=== PATIENT | male | born 1960 | race Caucasian/White ===

== ENCOUNTER 2023-04-12 13:23 | Inpatient (IN) | payer MEDICARE, OTHER ==
[2023-04-12] MEDS ORDERED: Morphine 4 MG/ML VIAL ONE (14:48)
[2023-04-12 14:56] LABS: #Eosinphils 0.4 thou/uL (0.0-0.7); #Monocytes 1.3 thou/uL (0.11-0.59); #Neutrophils 5.9 thou/uL (1.40-6.50); %Basophils 0.2 % (0.0-1.0); %Eosinophils 3.8 % (0.0-10.0); %Lymphocytes 19.7 % (21.0-51.0); %Monocytes 13.8 % (0.0-10.0); %Neutrophils 62.2 % (42.0-75.0); Hemoglobin 12.6 g/dL (14.0-18.0); Mean Corpuscular HGB CONC 33.9 g/dL (32.0-36.0); Mean Corpuscular Hemoglobin 31.4 pg (27.0-31.0); Mean Corpuscular Volume 92.8 fl (78.0-98.0); Mean Platelet Volume 9.2 fL (7.4-10.4); Platelet Count 221 10x3/uL (130-400); RBC Distribution Width 12.6 % (11.5-14.5); Red Blood Cell (RBC) Count 4.01 mill/uL (4.70-6.10); White Blood Cell (WBC) Count 9.5 10x3/uL (4.8-10.8)
[2023-04-12 15:18] LABS: ALT (SGPT) 16 U/L (8-55); AST (SGOT) 14 U/L (5-34); Albumin 3.6 g/dL (3.4-4.8); Alkaline Phosphatase 207 U/L (40-110); Anion Gap 12 mmol/L (10-20); BUN (Urea Nitrogen) 22 mg/dL (8.4-25.7); Bilirubin, Total 0.3 mg/dL (0.2-1.2); Calc. Creatinine Clearance 0 mL/min (70-130); Calcium 8.7 mg/dL (7.8-10.44); Carbon Dioxide 25 mmol/L (23-31); Chloride 107 mmol/L (98-107); Estimated GFR 56; Globulin 3.3 g/dL (2.4-3.5); Glucose 61 mg/dL (80-115); Lipase 23 U/L (8-78); Potassium 4.1 mmol/L (3.5-5.1); Protein, Total 6.9 g/dL (5.8-8.1); Sodium 140 mmol/L (136-145)
[2023-04-12 15:49] LABS: Bacteria/HPF 4+ HPF (None Seen); Bilirubin Negative (Negative); Blood, Urine 2+ (Negative); CAUTI Indications for Culture Pelvic or flank pain; Clarity Turbid (Clear); Glucose, Urine (Dipstick) Normal (Negative); Ketone, Urine Negative (Negative); Leukocyte 500 Leu/uL (Negative); Nitrite Negative (Negative); Protein, Urine (Dipstick) 30 mg/dL (Neg-Trace); RBC/HPF 21-50 HPF (0-3); Squamous Epithelial None Seen HPF (0-3); Urobilinogen Normal mg/dL (Less than 2); WBC/HPF Greater than 50 HPF (0-3)
[2023-04-12 15:50] LABS: Urine Culture Reflex Yes Yes
[2023-04-12] MEDS ORDERED: Senokot S 8.6-50 MG TAB PO PRN (18:33)
[2023-04-12] MEDS ORDERED: Calcium Carbonate 500 MG ChewTAB PO PRN (18:33)
[2023-04-12] MEDS ORDERED: Acetaminophen 325 MG TAB PO PRN (18:33)
[2023-04-12] MEDS ORDERED: Ondansetron ODT 4 MG TAB PO PRN (18:33)
[2023-04-12] MEDS ORDERED: Ondansetron PF 4 MG/2 ML Vial IVP PRN (18:33)
[2023-04-12] MEDS ORDERED: cefTRIAXone (ROCEPHIN) 1 GM VIAL ONE (19:07)
[2023-04-12] MEDS ORDERED: Lidocaine 1% PF 5 ML VIAL ONE (19:12)
[2023-04-12] MEDS ORDERED: HYDROcodone/Acetaminophen 5/325 mg Tablet PO PRN (19:14)
[2023-04-12 22:06] VITALS: BMI 23.1
[2023-04-13 07:00] LABS: #Eosinphils 0.4 thou/uL (0.0-0.7); #Monocytes 1.3 thou/uL (0.11-0.59); #Neutrophils 6.3 thou/uL (1.40-6.50); %Basophils 0.2 % (0.0-1.0); %Eosinophils 3.6 % (0.0-10.0); %Lymphocytes 16.6 % (21.0-51.0); %Monocytes 13.7 % (0.0-10.0); %Neutrophils 65.7 % (42.0-75.0); Hemoglobin 15.1 g/dL (14.0-18.0); Mean Corpuscular HGB CONC 32.8 g/dL (32.0-36.0); Mean Corpuscular Hemoglobin 31.2 pg (27.0-31.0); Mean Corpuscular Volume 95.2 fl (78.0-98.0); Mean Platelet Volume 8.9 fL (7.4-10.4); Platelet Count 218 10x3/uL (130-400); RBC Distribution Width 12.5 % (11.5-14.5); Red Blood Cell (RBC) Count 4.84 mill/uL (4.70-6.10); White Blood Cell (WBC) Count 9.6 10x3/uL (4.8-10.8)
[2023-04-13 07:26] LABS: Anion Gap 14 mmol/L (10-20); BUN (Urea Nitrogen) 23 mg/dL (8.4-25.7); Calc. Creatinine Clearance 64 mL/min (70-130); Calcium 9.1 mg/dL (7.8-10.44); Carbon Dioxide 19 mmol/L (23-31); Chloride 107 mmol/L (98-107); Estimated GFR 61; Glucose 81 mg/dL (80-115); Potassium 4.4 mmol/L (3.5-5.1); Sodium 136 mmol/L (136-145)
[2023-04-13] MEDS ORDERED: Lidocaine 1% PF 5 ML VIAL ONE (09:35)
[2023-04-13] MEDS ORDERED: Sodium Bicarbonate 2.5 MEQ/5 ML VIAL ONE (09:35)
[2023-04-13] MEDS: Carvedilol 6.25 MG TAB PO SCH (17:50)
[2023-04-13] MEDS ORDERED: Atorvastatin Calcium 40 MG TAB PO SCH (21:00)
[2023-04-14 01:08] VITALS: TEMP 97.7
[2023-04-14] MEDS ORDERED: Furosemide 40 MG TAB PO SCH (07:30)
[2023-04-14 07:50] VITALS: BP 158/81
[2023-04-14] MEDS: Carvedilol 6.25 MG TAB PO SCH (09:05)
== END 2023-04-14 12:00 | disposition left against medical advice (07) | DRG 699 ==
LOC: ERS 13:23 → SURG A 18:27 → OBSVTOIN 18:27
PROVIDERS: ADMIT Internal Medicine; ATTEND Internal Medicine
PROC: 0T25X0Z Change Drainage Device in Kidney, External Approach (ICD-10-PCS; principal; 2023-04-13)
DX: N99.522 Malfunction of incontinent external stoma of urinary tract (principal); I50.22 Chronic systolic (congestive) heart failure; N13.6 Pyonephrosis; Y84.6 Urinary catheterization as the cause of abnormal reaction of the patient, or of later complication, without mention of misadventure at the time of the procedure; I11.0 Hypertensive heart disease with heart failure; J44.9 Chronic obstructive pulmonary disease, unspecified; Z87.442 Personal history of urinary calculi; Z79.899 Other long term (current) drug therapy; Z90.49 Acquired absence of other specified parts of digestive tract; Z82.3 Family history of stroke; Z82.49 Family history of ischemic heart disease and other diseases of the circulatory system; F17.210 Nicotine dependence, cigarettes, uncomplicated
CPT/HCPCS: 36415; 50431; 50435; 74176; 80048; 80053; 81001; 83690; 85025; 87086; 96372; 96374; C1729; G0378; J0696; J2270; Q0162

== ENCOUNTER 2023-06-28 16:38 | Inpatient (IN) | payer MEDICARE, OTHER ==
[2023-06-28 17:27] LABS: #Monocytes 2.7 thou/uL (0.11-0.59); #Neutrophils 16.7 thou/uL (1.40-6.50); %Basophils 0.2 % (0.0-1.0); %Eosinophils 0.1 % (0.0-10.0); %Lymphocytes 7.1 % (21.0-51.0); %Neutrophils 79.1 % (42.0-75.0); Hematocrit 36.2 % (42.0-52.0); Hemoglobin 12.6 g/dL (14.0-18.0); Mean Corpuscular HGB CONC 34.8 g/dL (32.0-36.0); Mean Corpuscular Hemoglobin 32.4 pg (27.0-31.0); Mean Corpuscular Volume 93.1 fl (78.0-98.0); Mean Platelet Volume 9.3 fL (7.4-10.4); Platelet Count 228 10x3/uL (130-400); RBC Distribution Width 12.9 % (11.5-14.5); Red Blood Cell (RBC) Count 3.89 mill/uL (4.70-6.10); White Blood Cell (WBC) Count 21.2 10x3/uL (4.8-10.8)
[2023-06-28 17:59] LABS: ALT (SGPT) 13 U/L (8-55); AST (SGOT) 20 U/L (5-34); Albumin 3.8 g/dL (3.4-4.8); Alcohol Less than 10.0 mg/dL (Less than 10); Alkaline Phosphatase 139 U/L (40-110); Anion Gap 14 mmol/L (10-20); BUN (Urea Nitrogen) 24 mg/dL (8.4-25.7); Bilirubin, Total 0.6 mg/dL (0.2-1.2); Calc. Creatinine Clearance 0 mL/min (70-130); Calcium 8.8 mg/dL (7.8-10.44); Carbon Dioxide 25 mmol/L (23-31); Chloride 95 mmol/L (98-107); Estimated GFR 36; Globulin 3.9 g/dL (2.4-3.5); Glucose 94 mg/dL (80-115); Potassium 4.3 mmol/L (3.5-5.1); Protein, Total 7.7 g/dL (5.8-8.1); Sodium 130 mmol/L (136-145)
[2023-06-28 19:33] LABS: Bacteria/HPF 4+ HPF (None Seen); Bilirubin Negative (Negative); Blood, Urine 2+ (Negative); CAUTI Indications for Culture Pelvic or flank pain; Clarity Turbid (Clear); Glucose, Urine (Dipstick) Normal (Negative); Ketone, Urine Negative (Negative); Leukocyte 500 Leu/uL (Negative); Nitrite Negative (Negative); Protein, Urine (Dipstick) 100 mg/dL (Neg-Trace); Renal Epithelial 0-3 HPF (None Seen); Specific Gravity, Urine 1.018 (1.002-1.036); Squamous Epithelial 0-3 HPF (0-3); Urobilinogen Normal mg/dL (Less than 2); WBC/HPF Greater than 50 HPF (0-3); pH, Urine 5.5 (5.0-9.0)
[2023-06-28 19:34] LABS: Urine Culture Reflex Yes Yes
[2023-06-28 19:41] LABS: Amphetamine Detected (NotDetected); Barbiturates Screen Not Detected (NotDetected); Benzodiazepine Screen Not Detected (NotDetected); Cocaine Metabolite Screen Not Detected (NotDetected); Methadone Not Detected (NotDetected); Methamphetamine Detected (NotDetected); Opiate Screen Not Detected (NotDetected); Oxycodone Screen Not Detected (NotDetected); Phencyclidine (PCP) Not Detected (NotDetected); THC/Cannabinoid Screen Not Detected (NotDetected); Tricyclic Screen Not Detected (NotDetected)
[2023-06-28] MEDS ORDERED: Morphine 4 MG/ML VIAL ONE (20:47)
[2023-06-28] MEDS ORDERED: Piperacillin/Tazobactam 3.375 GM VIAL ONE (22:04)
[2023-06-28] MEDS ORDERED: Promethazine HCl 12.5 MG in Sodium Chloride 0.9% 50 ML IVPB PRN (23:08)
[2023-06-28] MEDS ORDERED: Morphine 4 MG/ML VIAL SLOW IVP PRN (23:10)
[2023-06-28] MEDS ORDERED: Lactated Ringer's 1,000 ML IV SCH (23:15)
[2023-06-28] MEDS ORDERED: Sodium Chloride 0.9% 1,000 ML IV SCH (23:15)
[2023-06-28] MEDS ORDERED: Ondansetron ODT 4 MG TAB SL PRN (23:15)
[2023-06-28] MEDS ORDERED: Ondansetron PF 4 MG/2 ML Vial IVP PRN (23:15)
[2023-06-28] MEDS ORDERED: Acetaminophen 325 MG TAB PO PRN (23:15)
[2023-06-29 00:04] VITALS: BMI 23.6
[2023-06-29] MEDS: Piperacillin/Tazobactam 3.375 GM in Sodium Chloride 0.9% 100 ML IVPB SCH ×3 (01:00→16:58)
[2023-06-29] MEDS: Morphine 2 MG/ML VIAL SLOW IVP PRN ×3 (03:23→19:22)
[2023-06-29] MEDS: Acetaminophen 325 MG TAB PO PRN ×2 (05:00→12:45)
[2023-06-29 05:54] LABS: #Eosinphils 0.3 thou/uL (0.0-0.7); #Monocytes 2.1 thou/uL (0.11-0.59); %Basophils 0.2 % (0.0-1.0); %Eosinophils 1.5 % (0.0-10.0); %Lymphocytes 5.3 % (21.0-51.0); %Monocytes 11.9 % (0.0-10.0); %Neutrophils 80.5 % (42.0-75.0); Hemoglobin 11.4 g/dL (14.0-18.0); Mean Corpuscular HGB CONC 34.5 g/dL (32.0-36.0); Mean Corpuscular Hemoglobin 31.9 pg (27.0-31.0); Mean Corpuscular Volume 92.4 fl (78.0-98.0); Mean Platelet Volume 9.9 fL (7.4-10.4); RBC Distribution Width 12.8 % (11.5-14.5); Red Blood Cell (RBC) Count 3.57 mill/uL (4.70-6.10); White Blood Cell (WBC) Count 17.4 10x3/uL (4.8-10.8)
[2023-06-29 05:59] LABS: Platelet Count 126 10x3/uL (130-400)
[2023-06-29 06:15] LABS: Anion Gap 15 mmol/L (10-20); BUN (Urea Nitrogen) 24 mg/dL (8.4-25.7); Calc. Creatinine Clearance 43 mL/min (70-130); Calcium 8.4 mg/dL (7.8-10.44); Carbon Dioxide 22 mmol/L (23-31); Chloride 98 mmol/L (98-107); Estimated GFR 37; Glucose 99 mg/dL (80-115); Potassium 3.5 mmol/L (3.5-5.1); Sodium 131 mmol/L (136-145)
[2023-06-29] MEDS: Heparin 5,000 UNITS/ML VIAL SC SCH ×3 (08:49→18:57)
[2023-06-29] MEDS: Carvedilol 6.25 MG TAB PO SCH ×2 (08:54→16:07)
[2023-06-29] MEDS: Sodium Chloride 0.9% 1,000 ML IV SCH (14:24)
[2023-06-29] MEDS: Atorvastatin Calcium 40 MG TAB PO SCH (19:22)
[2023-06-30] MEDS: Morphine 2 MG/ML VIAL SLOW IVP PRN ×2 (02:19→05:33)
[2023-06-30] MEDS: Sodium Chloride 0.9% 1,000 ML IV SCH ×2 (02:20→17:40)
[2023-06-30] MEDS: Piperacillin/Tazobactam 3.375 GM in Sodium Chloride 0.9% 100 ML IVPB SCH ×3 (02:20→17:40)
[2023-06-30] MEDS: Carvedilol 6.25 MG TAB PO SCH ×2 (05:33→17:36)
[2023-06-30] MEDS: Heparin 5,000 UNITS/ML VIAL SC SCH ×3 (08:50→22:45)
[2023-06-30] MEDS: Acetaminophen 325 MG TAB PO PRN (09:04)
[2023-06-30] MEDS: Atorvastatin Calcium 40 MG TAB PO SCH (22:16)
[2023-07-01] MEDS: Piperacillin/Tazobactam 3.375 GM in Sodium Chloride 0.9% 100 ML IVPB SCH ×3 (02:24→17:09)
[2023-07-01] MEDS: Carvedilol 6.25 MG TAB PO SCH ×2 (08:59→16:12)
[2023-07-01] MEDS: Heparin 5,000 UNITS/ML VIAL SC SCH ×3 (09:00→20:38)
[2023-07-01] MEDS: Morphine 2 MG/ML VIAL SLOW IVP PRN ×3 (09:03→23:41)
[2023-07-01] MEDS: Atorvastatin Calcium 40 MG TAB PO SCH (20:38)
[2023-07-01] MEDS: Sodium Chloride 0.9% 1,000 ML IV SCH ×3 (20:47→20:49)
[2023-07-02] MEDS: Piperacillin/Tazobactam 3.375 GM in Sodium Chloride 0.9% 100 ML IVPB SCH ×3 (00:57→17:20)
[2023-07-02 04:30] LABS: Anion Gap 12 mmol/L (10-20); BUN (Urea Nitrogen) 27 mg/dL (8.4-25.7); Calc. Creatinine Clearance 57 mL/min (70-130); Calcium 8.1 mg/dL (7.8-10.44); Carbon Dioxide 25 mmol/L (23-31); Cardiac Risk 7.7 (Less than 4.5); Chloride 105 mmol/L (98-107); Cholesterol 85 mg/dl (< 200 Desired); Estimated GFR 52; Glucose 95 mg/dL (80-115); HDL Cholesterol 11 mg/dL (>60 Neg Risk); LDL Cholesterol, Calculated 50 mg/dL; Potassium 3.6 mmol/L (3.5-5.1); Sodium 138 mmol/L (136-145); Triglycerides 119 mg/dL (Less than 150)
[2023-07-02] MEDS: Morphine 2 MG/ML VIAL SLOW IVP PRN (06:53)
[2023-07-02] MEDS ORDERED: FLU VACC QS2023-24(6MOS UP)/PF 60 MCG/0.5 ML SYRINGE IM ONE (09:00)
[2023-07-02] MEDS: Carvedilol 6.25 MG TAB PO SCH ×2 (10:43→17:20)
[2023-07-02] MEDS: Heparin 5,000 UNITS/ML VIAL SC SCH ×3 (10:43→21:30)
[2023-07-02] MEDS: Atorvastatin Calcium 40 MG TAB PO SCH (21:13)
[2023-07-02] MEDS: Sodium Chloride 0.9% 1,000 ML IV SCH (21:13)
[2023-07-02] MEDS: hydrALAZINE 25 MG TAB PO SCH (21:14)
[2023-07-03] MEDS: Piperacillin/Tazobactam 3.375 GM in Sodium Chloride 0.9% 100 ML IVPB SCH ×5 (02:57→18:16)
[2023-07-03 10:14] LABS: #Eosinphils 0.4 thou/uL (0.0-0.7); #Monocytes 0.9 thou/uL (0.11-0.59); #Neutrophils 6.2 thou/uL (1.40-6.50); %Basophils 0.2 % (0.0-1.0); %Eosinophils 4.5 % (0.0-10.0); %Monocytes 10.5 % (0.0-10.0); %Neutrophils 71.1 % (42.0-75.0); Hematocrit 32.2 % (42.0-52.0); Hemoglobin 10.5 g/dL (14.0-18.0); Mean Corpuscular HGB CONC 32.6 g/dL (32.0-36.0); Mean Corpuscular Hemoglobin 31.5 pg (27.0-31.0); Mean Corpuscular Volume 96.7 fl (78.0-98.0); Mean Platelet Volume 9.8 fL (7.4-10.4); Platelet Count 203 10x3/uL (130-400); RBC Distribution Width 12.8 % (11.5-14.5); Red Blood Cell (RBC) Count 3.33 mill/uL (4.70-6.10); White Blood Cell (WBC) Count 8.7 10x3/uL (4.8-10.8)
[2023-07-03] MEDS ORDERED: Communication Order-Pharmacy FS SCH (10:15)
[2023-07-03 10:43] LABS: Anion Gap 13 mmol/L (10-20); BUN (Urea Nitrogen) 18 mg/dL (8.4-25.7); Calc. Creatinine Clearance 62 mL/min (70-130); Calcium 8.4 mg/dL (7.8-10.44); Carbon Dioxide 22 mmol/L (23-31); Chloride 108 mmol/L (98-107); Estimated GFR 57; Glucose 85 mg/dL (80-115); Potassium 3.8 mmol/L (3.5-5.1); Sodium 139 mmol/L (136-145)
[2023-07-03] MEDS: hydrALAZINE 25 MG TAB PO SCH ×3 (10:51→20:44)
[2023-07-03] MEDS: Isosorbide Dinitrate 5 MG TAB PO SCH ×3 (10:51→20:44)
[2023-07-03] MEDS: Sodium Chloride 0.9% 1,000 ML IV SCH (10:52)
[2023-07-03] MEDS: Carvedilol 6.25 MG TAB PO SCH ×2 (10:52→15:43)
[2023-07-03] MEDS: Heparin 5,000 UNITS/ML VIAL SC SCH ×2 (10:52→15:43)
[2023-07-03] MEDS: Morphine 2 MG/ML VIAL SLOW IVP PRN (14:04)
[2023-07-03] MEDS: Atorvastatin Calcium 40 MG TAB PO SCH (20:44)
[2023-07-04] MEDS: Sodium Chloride 0.9% 1,000 ML IV SCH (01:31)
[2023-07-04] MEDS: Piperacillin/Tazobactam 3.375 GM in Sodium Chloride 0.9% 100 ML IVPB SCH ×2 (03:06→11:45)
[2023-07-04] MEDS: Morphine 2 MG/ML VIAL SLOW IVP PRN (03:11)
[2023-07-04 03:17] VITALS: TEMP 98.5
[2023-07-04 04:30] LABS: #Eosinphils 0.4 thou/uL (0.0-0.7); %Basophils 0.3 % (0.0-1.0); %Eosinophils 3.8 % (0.0-10.0); %Lymphocytes 15.9 % (21.0-51.0); %Monocytes 9.5 % (0.0-10.0); %Neutrophils 69.8 % (42.0-75.0); Hematocrit 29.4 % (42.0-52.0); Hemoglobin 9.8 g/dL (14.0-18.0); Mean Corpuscular HGB CONC 33.3 g/dL (32.0-36.0); Mean Corpuscular Hemoglobin 31.9 pg (27.0-31.0); Mean Corpuscular Volume 95.8 fl (78.0-98.0); Mean Platelet Volume 9.7 fL (7.4-10.4); Platelet Count 273 10x3/uL (130-400); RBC Distribution Width 12.9 % (11.5-14.5); Red Blood Cell (RBC) Count 3.07 mill/uL (4.70-6.10)
[2023-07-04 05:04] LABS: Anion Gap 11 mmol/L (10-20); BUN (Urea Nitrogen) 19 mg/dL (8.4-25.7); Calc. Creatinine Clearance 62 mL/min (70-130); Calcium 8.2 mg/dL (7.8-10.44); Carbon Dioxide 23 mmol/L (23-31); Chloride 107 mmol/L (98-107); Estimated GFR 58; Glucose 88 mg/dL (80-115); Potassium 3.9 mmol/L (3.5-5.1); Sodium 137 mmol/L (136-145)
[2023-07-04] MEDS: Acetaminophen 325 MG TAB PO PRN (05:20)
[2023-07-04] MEDS: Carvedilol 6.25 MG TAB PO SCH ×2 (05:20→18:03)
[2023-07-04] MEDS: hydrALAZINE 25 MG TAB PO SCH (05:20)
[2023-07-04] MEDS: Isosorbide Dinitrate 5 MG TAB PO SCH (05:20)
[2023-07-04] MEDS ORDERED: Sodium Chloride 0.9% 1,000 ML IV SCH ×2 (06:00→10:12)
[2023-07-04] MEDS ORDERED: Lidocaine 1% (PF) 30 ML VIAL ONE (08:39)
[2023-07-04] MEDS ORDERED: Heparin 10,000 UNITS/ 10 ML VIAL ONE (08:39)
[2023-07-04] MEDS ORDERED: fentaNYL 50 mcg/mL 1 mL Vial ONE (09:19)
[2023-07-04] MEDS ORDERED: Midazolam HCl 2 mg/2 ml Vial ONE (09:19)
[2023-07-04] MEDS ORDERED: Nitroglycerin 50 MG/250 ML BOT 0 ML ONE (09:20)
[2023-07-04] MEDS ORDERED: Protamine Sulfate 50 MG/5 ML VIAL ONE (09:59)
[2023-07-04] MEDS ORDERED: Sodium Chloride 0.9% 200 ML IV PRN (10:11)
[2023-07-04] MEDS ORDERED: Nitroglycerin 0.4 MG TAB (25 Tab Bottle) SL PRN (10:11)
[2023-07-04] MEDS ORDERED: Acetaminophen/Codeine 30-300mg Tablet PO PRN ×2 (10:11)
[2023-07-04 18:03] VITALS: BP 103/53
[2023-07-05] MEDS ORDERED: Furosemide 40 MG TAB PO SCH (07:30)
== END 2023-07-04 18:20 | disposition home or self-care (01) | DRG 872 ==
LOC: ERS 16:38 → T4-B 22:08 → 2NO 06-30 17:16
PROVIDERS: ADMIT Student in an Organized Health Care Education/Training Program; ATTEND Internal Medicine
PROC: 3E03329 Introduction of Other Anti-infective into Peripheral Vein, Percutaneous Approach (ICD-10-PCS; 2023-06-28)
PROC: 0T25X0Z Change Drainage Device in Kidney, External Approach (ICD-10-PCS; principal; 2023-06-30)
DX: A41.9 Sepsis, unspecified organism (principal); N13.2 Hydronephrosis with renal and ureteral calculous obstruction; N17.9 Acute kidney failure, unspecified; I13.0 Hypertensive heart and chronic kidney disease with heart failure and stage 1 through stage 4 chronic kidney disease, or unspecified chronic kidney disease; N39.0 Urinary tract infection, site not specified; E87.1 Hypo-osmolality and hyponatremia; N10 Acute pyelonephritis; I42.9 Cardiomyopathy, unspecified; I50.22 Chronic systolic (congestive) heart failure; N99.522 Malfunction of incontinent external stoma of urinary tract; R65.20 Severe sepsis without septic shock; E78.5 Hyperlipidemia, unspecified; J44.9 Chronic obstructive pulmonary disease, unspecified; F31.9 Bipolar disorder, unspecified; F17.210 Nicotine dependence, cigarettes, uncomplicated; N18.30 Chronic kidney disease, stage 3 unspecified; F15.10 Other stimulant abuse, uncomplicated; Z79.899 Other long term (current) drug therapy; Z90.49 Acquired absence of other specified parts of digestive tract; Z98.890 Other specified postprocedural states; Z80.49 Family history of malignant neoplasm of other genital organs; Z79.01 Long term (current) use of anticoagulants
CPT/HCPCS: 36415; 50435; 71045; 74176; 80048; 80053; 80061; 80306; 80307; 81001; 82140; 83605; 85025; 85347; 86140; 87040; 87077; 87086; 87149; 87186; 93005; 94760; 96361; 96365; 96366; 96368; C1769; J1644; J2001; J2250; J2270; J2272; J2543; J2720; J3010; J3490; J7050

== ENCOUNTER 2023-07-16 00:11 | Inpatient (IN) | payer OTHER ==
[2023-07-16 01:45] LABS: #Eosinphils 0.3 thou/uL (0.0-0.7); #Monocytes 1.3 thou/uL (0.11-0.59); #Neutrophils 6.9 thou/uL (1.40-6.50); %Basophils 0.3 % (0.0-1.0); %Eosinophils 3.1 % (0.0-10.0); %Lymphocytes 13.5 % (21.0-51.0); %Monocytes 13.3 % (0.0-10.0); %Neutrophils 69.5 % (42.0-75.0); Hematocrit 34.1 % (42.0-52.0); Hemoglobin 11.4 g/dL (14.0-18.0); Mean Corpuscular HGB CONC 33.4 g/dL (32.0-36.0); Mean Corpuscular Volume 95.8 fl (78.0-98.0); Mean Platelet Volume 8.9 fL (7.4-10.4); Platelet Count 361 10x3/uL (130-400); RBC Distribution Width 12.7 % (11.5-14.5); Red Blood Cell (RBC) Count 3.56 mill/uL (4.70-6.10)
[2023-07-16 01:54] LABS: Bilirubin Negative (Negative); Blood, Urine 2+ (Negative); CAUTI Indications for Culture Pelvic or flank pain; Clarity Turbid (Clear); Glucose, Urine (Dipstick) Normal (Negative); Ketone, Urine Negative (Negative); Leukocyte 500 Leu/uL (Negative); Nitrite 2+ (Negative); Protein, Urine (Dipstick) 50 mg/dL (Neg-Trace); Specific Gravity, Urine 1.014 (1.002-1.036); Squamous Epithelial None Seen HPF (0-3); Urobilinogen Normal mg/dL (Less than 2); WBC/HPF 21-50 HPF (0-3); Yeast-Budding 2+ HPF (None Seen); pH, Urine 5.5 (5.0-9.0)
[2023-07-16 01:58] LABS: Bacteria/HPF 1+ HPF (None Seen)
[2023-07-16 01:59] LABS: INR-International Normal Ratio 1.1; PTT 33.1 sec (22.9-36.1); Prothrombin Time 14.8 sec (12.0-14.7); Urine Culture Reflex Yes Yes
[2023-07-16 02:13] LABS: ALT (SGPT) 14 U/L (8-55); AST (SGOT) 15 U/L (5-34); Albumin 3.8 g/dL (3.4-4.8); Alkaline Phosphatase 182 U/L (40-110); Anion Gap 14 mmol/L (10-20); BUN (Urea Nitrogen) 26 mg/dL (8.4-25.7); Bilirubin, Total 0.3 mg/dL (0.2-1.2); Calc. Creatinine Clearance 0 mL/min (70-130); Calcium 8.7 mg/dL (7.8-10.44); Carbon Dioxide 24 mmol/L (23-31); Chloride 102 mmol/L (98-107); Estimated GFR 35; Globulin 3.6 g/dL (2.4-3.5); Glucose 95 mg/dL (80-115); Protein, Total 7.4 g/dL (5.8-8.1); Sodium 136 mmol/L (136-145)
[2023-07-16] MEDS ORDERED: Acetaminophen 325 MG TAB PO PRN (02:38)
[2023-07-16] MEDS ORDERED: HYDROcodone/Acetaminophen 5/325 mg Tablet PO PRN (02:38)
[2023-07-16] MEDS ORDERED: Acetaminophen 650 MG Suppository PR PRN (02:38)
[2023-07-16] MEDS ORDERED: Sodium Chloride 0.9% 500 ML IV SCH (03:15)
[2023-07-16 03:37] VITALS: BMI 22.4
[2023-07-16] MEDS: Cefepime 2 GM in Sodium Chloride 0.9% 100 ML IVPB SCH ×2 (03:45→15:55)
[2023-07-16] MEDS: Famotidine 20 MG TAB PO SCH (08:06)
[2023-07-16] MEDS ORDERED: Acetaminophen 500 MG TAB PO PRN (15:28)
[2023-07-16] MEDS ORDERED: Morphine 2 MG/ML VIAL SLOW IVP SCH (15:30)
[2023-07-16] MEDS: oxyCODONE 5 MG TAB PO PRN (23:29)
[2023-07-17] MEDS: Cefepime 2 GM in Sodium Chloride 0.9% 100 ML IVPB SCH ×2 (03:45→17:26)
[2023-07-17] MEDS: Famotidine 20 MG TAB PO SCH (08:56)
[2023-07-17 09:21] LABS: #Basophils 0.1 thou/uL (0.0-0.2); #Eosinphils 0.2 thou/uL (0.0-0.7); #Monocytes 1.8 thou/uL (0.11-0.59); #Neutrophils 8.3 thou/uL (1.40-6.50); %Basophils 0.5 % (0.0-1.0); %Eosinophils 1.5 % (0.0-10.0); %Lymphocytes 8.4 % (21.0-51.0); %Monocytes 15.7 % (0.0-10.0); %Neutrophils 73.5 % (42.0-75.0); Hematocrit 34.3 % (42.0-52.0); Hemoglobin 10.7 g/dL (14.0-18.0); Mean Corpuscular HGB CONC 31.2 g/dL (32.0-36.0); Mean Corpuscular Hemoglobin 31.3 pg (27.0-31.0); Mean Corpuscular Volume 100.3 fl (78.0-98.0); Mean Platelet Volume 8.7 fL (7.4-10.4); Platelet Count 227 10x3/uL (130-400); RBC Distribution Width 12.7 % (11.5-14.5); Red Blood Cell (RBC) Count 3.42 mill/uL (4.70-6.10); White Blood Cell (WBC) Count 11.3 10x3/uL (4.8-10.8)
[2023-07-17 09:44] LABS: Anion Gap 11 mmol/L (10-20); BUN (Urea Nitrogen) 21 mg/dL (8.4-25.7); Calc. Creatinine Clearance 48 mL/min (70-130); Calcium 8.5 mg/dL (7.8-10.44); Carbon Dioxide 20 mmol/L (23-31); Chloride 104 mmol/L (98-107); Estimated GFR 46; Glucose 94 mg/dL (80-115); Potassium 4.1 mmol/L (3.5-5.1); Sodium 131 mmol/L (136-145)
[2023-07-17] MEDS: oxyCODONE 5 MG TAB PO PRN ×3 (13:50→23:44)
[2023-07-17] MEDS ORDERED: Fluconazole 100 MG TAB PO SCH (17:00)
[2023-07-18] MEDS: Cefepime 2 GM in Sodium Chloride 0.9% 100 ML IVPB SCH (04:07)
[2023-07-18 08:38] VITALS: BP 124/65; TEMP 97.9
[2023-07-18] MEDS: Famotidine 20 MG TAB PO SCH (08:48)
== END 2023-07-18 10:19 | disposition home or self-care (01) | DRG 699 ==
LOC: ERS 00:11 → INTOOBSV 01:29 → T4-B 01:29 → OBSVTOIN 15:35
PROVIDERS: ADMIT Student in an Organized Health Care Education/Training Program; ATTEND Hospitalist
PROC: 0T9430Z Drainage of Left Kidney Pelvis with Drainage Device, Percutaneous Approach (ICD-10-PCS; principal; 2023-07-16)
PROC: 0T25X0Z Change Drainage Device in Kidney, External Approach (ICD-10-PCS; 2023-07-16)
DX: T83.022A Displacement of nephrostomy catheter, initial encounter (principal); I13.0 Hypertensive heart and chronic kidney disease with heart failure and stage 1 through stage 4 chronic kidney disease, or unspecified chronic kidney disease; I42.8 Other cardiomyopathies; I50.22 Chronic systolic (congestive) heart failure; N13.2 Hydronephrosis with renal and ureteral calculous obstruction; N17.9 Acute kidney failure, unspecified; F19.10 Other psychoactive substance abuse, uncomplicated; N18.9 Chronic kidney disease, unspecified; J44.9 Chronic obstructive pulmonary disease, unspecified; D63.1 Anemia in chronic kidney disease; F17.210 Nicotine dependence, cigarettes, uncomplicated; Z71.51 Drug abuse counseling and surveillance of drug abuser; Z79.2 Long term (current) use of antibiotics; Z79.899 Other long term (current) drug therapy; Z90.49 Acquired absence of other specified parts of digestive tract; Z98.890 Other specified postprocedural states
CPT/HCPCS: 36415; 50435; 76942; 80048; 80053; 81001; 85025; 85610; 85730; 87086; 99284; J0692; J2272; J3490; J7050

== ENCOUNTER 2023-08-01 01:55 | Inpatient (IN) | payer MEDICARE, OTHER ==
[2023-08-01] MEDS ORDERED: Ondansetron PF 4 MG/2 ML Vial ONE (03:38)
[2023-08-01] MEDS ORDERED: cefTRIAXone (ROCEPHIN) 1 GM VIAL ONE (03:38)
[2023-08-01] MEDS ORDERED: Ketorolac Tromethamine 30 MG/ML VIAL ONE (03:38)
[2023-08-01] MEDS ORDERED: Morphine 4 MG/ML VIAL ONE (03:43)
[2023-08-01] MEDS ORDERED: Diazepam 5 MG TAB ONE (03:43)
[2023-08-01 03:54] LABS: Hemoglobin 12.4 g/dL (14.0-18.0); Mean Corpuscular HGB CONC 33.5 g/dL (32.0-36.0); Mean Corpuscular Hemoglobin 31.7 pg (27.0-31.0); Mean Corpuscular Volume 94.6 fl (78.0-98.0); Platelet Count 316 10x3/uL (130-400); RBC Distribution Width 13.5 % (11.5-14.5); Red Blood Cell (RBC) Count 3.91 mill/uL (4.70-6.10); White Blood Cell (WBC) Count 36.6 10x3/uL (4.8-10.8)
[2023-08-01 04:09] LABS: Delete Auto Diff?? YES; Manual Diff?? YES
[2023-08-01 04:23] LABS: Acetaminophen Less than 10 mcg/mL (10.0-30.0); Alcohol Less than 10.0 mg/dL (Less than 10); Lipase 38 U/L (8-78); Salicylate Less than 8.0 mg/dL (15.0-30.0)
[2023-08-01 04:26] LABS: Troponin I 0.016 ng/mL (< 0.028)
[2023-08-01 04:28] LABS: Anisocytosis SLIGHT = 6-15 cells HPF (0-5); Burr Cells SLIGHT = 2-5 cells HPF (0-1); CellaVision Operator ID LAB.JMM; Elliptocytes SLIGHT = 2-5 cells HPF (0-1); Lymphocytes 2 % (21-51); Macrocytosis SLIGHT = 6-15 cells HPF (0-5); Metamyelocyte 1 % (0-0); Monocytes 3 % (0-10); Neutrophil 94 % (42-75); Platelet Adequacy Comment Platelets Normal; Smudge Cells 2.9 %; Total Cell Count 103
[2023-08-01 04:40] LABS: ALT (SGPT) 30 U/L (8-55); AST (SGOT) 34 U/L (5-34); Albumin 3.8 g/dL (3.4-4.8); Alkaline Phosphatase 181 U/L (40-110); Anion Gap 19 mmol/L (10-20); BUN (Urea Nitrogen) 17 mg/dL (8.4-25.7); Bilirubin, Total 0.7 mg/dL (0.2-1.2); Calc. Creatinine Clearance 0 mL/min (70-130); Calcium 8.8 mg/dL (7.8-10.44); Carbon Dioxide 20 mmol/L (23-31); Chloride 100 mmol/L (98-107); Estimated GFR 42; Globulin 4.2 g/dL (2.4-3.5); Glucose 84 mg/dL (80-115); Potassium 4.7 mmol/L (3.5-5.1); Sodium 134 mmol/L (136-145)
[2023-08-01] MEDS ORDERED: Vancomycin 1 GM/200 ML (FROZEN) BAG ONE ×2 (04:40→11:15)
[2023-08-01 05:59] LABS: Amphetamine Detected (NotDetected); Barbiturates Screen Not Detected (NotDetected); Benzodiazepine Screen Not Detected (NotDetected); Cocaine Metabolite Screen Not Detected (NotDetected); Methadone Not Detected (NotDetected); Methamphetamine Detected (NotDetected); Opiate Screen Detected (NotDetected); Oxycodone Screen Not Detected (NotDetected); Phencyclidine (PCP) Not Detected (NotDetected); THC/Cannabinoid Screen Not Detected (NotDetected); Tricyclic Screen Not Detected (NotDetected)
[2023-08-01 06:18] LABS: Bacteria/HPF 3+ HPF (None Seen); Bilirubin Negative (Negative); Blood, Urine 1+ (Negative); CAUTI Indications for Culture Pelvic or flank pain; Clarity Turbid (Clear); Glucose, Urine (Dipstick) Normal (Negative); Ketone, Urine Negative (Negative); Leukocyte 500 Leu/uL (Negative); Nitrite Negative (Negative); Protein, Urine (Dipstick) 70 mg/dL (Neg-Trace); Specific Gravity, Urine 1.013 (1.002-1.036); Squamous Epithelial None Seen HPF (0-3); Urobilinogen Normal mg/dL (Less than 2); WBC/HPF Greater than 50 HPF (0-3)
[2023-08-01 06:21] LABS: Urine Culture Reflex Yes Yes
[2023-08-01 06:51] LABS: SARS-CoV-2 NAA Rapid Test Not Detected (NotDetected)
[2023-08-01 08:17] VITALS: BMI 22.4
[2023-08-01 08:24] LABS: Magnesium 1.4 mg/dL (1.6-2.6)
[2023-08-01 08:28] LABS: Troponin I 0.021 ng/mL (< 0.028)
[2023-08-01] MEDS ORDERED: Magnesium Sulfate In Water 4 GM in Premix 1 BAG IVPB SCH (09:45)
[2023-08-01] MEDS ORDERED: Calcium Carbonate 500 MG ChewTAB PO PRN (10:00)
[2023-08-01] MEDS ORDERED: Senokot S 8.6-50 MG TAB PO PRN (10:00)
[2023-08-01] MEDS ORDERED: Ondansetron ODT 4 MG TAB PO PRN (10:00)
[2023-08-01] MEDS ORDERED: metroNIDAZOLE 500 MG/100 ML BAG ONE (10:19)
[2023-08-01] MEDS: metroNIDAZOLE 500 MG in Premix 1 BAG IVPB SCH ×2 (10:31→17:42)
[2023-08-01] MEDS ORDERED: Vancomycin 1 GM in Premix 1 BAG IVPB SCH ×3 (11:00→21:00)
[2023-08-01 11:32] LABS: Troponin I 0.022 ng/mL (< 0.028)
[2023-08-01] MEDS ORDERED: Iopamidol 370 76% 100 ML VIAL ONE (13:31)
[2023-08-01] MEDS ORDERED: Heparin 5,000 UNITS/ML VIAL SC SCH (15:00)
[2023-08-01] MEDS ORDERED: cefTRIAXone\\ROCEPHIN 1 GM in Sodium Chloride 0.9% 100 ML IVPB SCH (16:00)
[2023-08-01] MEDS ORDERED: Magnesium 2 GM/50 ML(in water) 2 GM in Premix 1 BAG IVPB SCH (17:30)
[2023-08-01] MEDS: hydrALAZINE 25 MG TAB PO SCH ×2 (17:42→21:06)
[2023-08-01] MEDS: Carvedilol 6.25 MG TAB PO SCH (17:42)
[2023-08-01] MEDS: Ondansetron PF 4 MG/2 ML Vial IVP PRN (17:49)
[2023-08-01] MEDS: Acetaminophen 325 MG TAB PO PRN (18:18)
[2023-08-01 18:21] LABS: Hematocrit 33.2 % (42.0-52.0); Hemoglobin 11.2 g/dL (14.0-18.0)
[2023-08-01] MEDS ORDERED: HYDROcodone/Acetaminophen 5/325 mg Tablet PO SCH (19:00)
[2023-08-01] MEDS: Cefepime 1 GM in Sodium Chloride 0.9% 100 ML IVPB SCH (21:12)
[2023-08-01] MEDS: Pantoprazole 40 MG VIAL IVP SCH (21:12)
[2023-08-01 23:44] LABS: Hematocrit 32.8 % (42.0-52.0)
[2023-08-02] MEDS: Acetaminophen 325 MG TAB PO PRN ×2 (06:37→14:29)
[2023-08-02] MEDS: Cefepime 1 GM in Sodium Chloride 0.9% 100 ML IVPB SCH ×2 (08:12→21:00)
[2023-08-02] MEDS: Pantoprazole 40 MG VIAL IVP SCH ×2 (08:27→21:00)
[2023-08-02] MEDS ORDERED: Famotidine 20 MG TAB PO SCH (09:00)
[2023-08-02 10:14] LABS: ALT (SGPT) 19 U/L (8-55); AST (SGOT) 26 U/L (5-34); Albumin 2.8 g/dL (3.4-4.8); Alkaline Phosphatase 111 U/L (40-110); Anion Gap 13 mmol/L (10-20); BUN (Urea Nitrogen) 34 mg/dL (8.4-25.7); Bilirubin, Total 0.3 mg/dL (0.2-1.2); Calc. Creatinine Clearance 32 mL/min (70-130); Carbon Dioxide 19 mmol/L (23-31); Chloride 100 mmol/L (98-107); Estimated GFR 26; Globulin 3.1 g/dL (2.4-3.5); Glucose 103 mg/dL (80-115); Magnesium 2.7 mg/dL (1.6-2.6); Potassium 4.1 mmol/L (3.5-5.1); Protein, Total 5.9 g/dL (5.8-8.1); Sodium 128 mmol/L (136-145)
[2023-08-02] MEDS: hydrALAZINE 25 MG TAB PO SCH (10:21)
[2023-08-02] MEDS: Carvedilol 6.25 MG TAB PO SCH ×2 (10:33→16:37)
[2023-08-02 10:36] LABS: Hematocrit 36.1 % (42.0-52.0); Hemoglobin 12.5 g/dL (14.0-18.0); Mean Corpuscular HGB CONC 34.6 g/dL (32.0-36.0); Mean Corpuscular Hemoglobin 31.5 pg (27.0-31.0); Mean Corpuscular Volume 90.9 fl (78.0-98.0); Platelet Count 153 10x3/uL (130-400); RBC Distribution Width 13.6 % (11.5-14.5); Red Blood Cell (RBC) Count 3.97 mill/uL (4.70-6.10); White Blood Cell (WBC) Count 21.2 10x3/uL (4.8-10.8)
[2023-08-02 10:39] LABS: Delete Auto Diff?? YES; Manual Diff?? YES
[2023-08-02] MEDS ORDERED: Sodium Chloride 0.9% 1,000 ML IV SCH (10:45)
[2023-08-02 10:52] LABS: Band 9 % (5-11); Lymphocytes 5 % (21-51); Monocytes 5 % (0-10); Neutrophil 81 % (42-75)
[2023-08-02 10:53] LABS: Anisocytosis SLIGHT = 6-15 cells (100X) (0-5/hpf)
[2023-08-02 10:54] LABS: Burr Cells SLIGHT = 2-5 cells (100X) (0-1/hpf)
[2023-08-02 10:56] LABS: Platelet Adequacy Comment Appears Adequate
[2023-08-02] MEDS: Morphine 4 MG/ML VIAL SLOW IVP PRN ×2 (11:11→14:33)
[2023-08-02] MEDS: Albumin 25% 25 GM/100 ML BOT IVPB SCH ×2 (11:11→16:34)
[2023-08-02 11:30] LABS: Vancomycin, Random 14.4 ug/mL (See Comment)
[2023-08-02] MEDS ORDERED: Vancomycin (BATCH) 1.5 GM in Premix 1 BAG IVPB SCH (12:00)
[2023-08-02] MEDS: Vancomycin HCl 750 MG in Sodium Chloride 0.9% 250 ML 250 ML IVPB SCH (12:03)
[2023-08-02 20:42] LABS: ALT (SGPT) 16 U/L (8-55); AST (SGOT) 23 U/L (5-34); Alkaline Phosphatase 86 U/L (40-110); Anion Gap 13 mmol/L (10-20); BUN (Urea Nitrogen) 39 mg/dL (8.4-25.7); Bilirubin, Total 0.3 mg/dL (0.2-1.2); Calc. Creatinine Clearance 32 mL/min (70-130); Calcium 7.6 mg/dL (7.8-10.44); Carbon Dioxide 20 mmol/L (23-31); Chloride 99 mmol/L (98-107); Estimated GFR 26; Globulin 2.3 g/dL (2.4-3.5); Glucose 93 mg/dL (80-115); Potassium 4.3 mmol/L (3.5-5.1); Protein, Total 5.3 g/dL (5.8-8.1); Sodium 128 mmol/L (136-145)
[2023-08-02 21:27] LABS: #Neutrophils 16.1 thou/uL (1.40-6.50); %Basophils 0.1 % (0.0-1.0); %Eosinophils 0.2 % (0.0-10.0); %Lymphocytes 4.2 % (21.0-51.0); %Monocytes 5.8 % (0.0-10.0); %Neutrophils 89.2 % (42.0-75.0); Mean Corpuscular HGB CONC 33.3 g/dL (32.0-36.0); Mean Corpuscular Hemoglobin 31.4 pg (27.0-31.0); Mean Platelet Volume 9.4 fL (7.4-10.4); Platelet Count 173 10x3/uL (130-400); RBC Distribution Width 13.8 % (11.5-14.5); Red Blood Cell (RBC) Count 2.77 mill/uL (4.70-6.10)
[2023-08-02 21:34] LABS: Hematocrit 26.1 % (42.0-52.0); Hemoglobin 8.7 g/dL (14.0-18.0)
[2023-08-02 21:36] LABS: Mean Corpuscular Volume 94.2 fl (78.0-98.0)
[2023-08-03] MEDS: Albumin 25% 25 GM/100 ML BOT IVPB SCH ×2 (00:01→05:47)
[2023-08-03 07:01] LABS: #Eosinphils 0.1 thou/uL (0.0-0.7); #Monocytes 1.1 thou/uL (0.11-0.59); #Neutrophils 11.8 thou/uL (1.40-6.50); %Basophils 0.1 % (0.0-1.0); %Eosinophils 0.5 % (0.0-10.0); %Lymphocytes 6.5 % (21.0-51.0); %Monocytes 7.8 % (0.0-10.0); %Neutrophils 84.6 % (42.0-75.0); Hematocrit 28.5 % (42.0-52.0); Hemoglobin 9.4 g/dL (14.0-18.0); Mean Corpuscular Hemoglobin 31.3 pg (27.0-31.0); Mean Platelet Volume 9.6 fL (7.4-10.4); Platelet Count 170 10x3/uL (130-400); RBC Distribution Width 13.8 % (11.5-14.5); White Blood Cell (WBC) Count 13.9 10x3/uL (4.8-10.8)
[2023-08-03 07:30] LABS: Anion Gap 14 mmol/L (10-20); BUN (Urea Nitrogen) 36 mg/dL (8.4-25.7); Calc. Creatinine Clearance 38 mL/min (70-130); Calcium 7.8 mg/dL (7.8-10.44); Carbon Dioxide 20 mmol/L (23-31); Chloride 97 mmol/L (98-107); Estimated GFR 31; Glucose 88 mg/dL (80-115); Potassium 4.1 mmol/L (3.5-5.1); Sodium 127 mmol/L (136-145)
[2023-08-03 08:56] LABS: Hematocrit 27.1 % (42.0-52.0); Hemoglobin 9.1 g/dL (14.0-18.0)
[2023-08-03] MEDS: Carvedilol 6.25 MG TAB PO SCH (09:24)
[2023-08-03] MEDS: Cefepime 1 GM in Sodium Chloride 0.9% 100 ML IVPB SCH ×2 (09:24→20:07)
[2023-08-03] MEDS: Pantoprazole 40 MG VIAL IVP SCH ×2 (09:25→20:07)
[2023-08-03 11:56] LABS: Vancomycin, Trough 11.9 ug/mL
[2023-08-03] MEDS: Vancomycin HCl 750 MG in Sodium Chloride 0.9% 250 ML 250 ML IVPB SCH (12:36)
[2023-08-03] MEDS: Morphine 4 MG/ML VIAL SLOW IVP PRN (15:55)
[2023-08-03] MEDS: Carvedilol 3.125 MG TAB PO SCH (15:57)
[2023-08-04] MEDS: Carvedilol 3.125 MG TAB PO SCH ×2 (11:03→17:04)
[2023-08-04] MEDS: Pantoprazole 40 MG VIAL IVP SCH ×2 (11:03→19:49)
[2023-08-04] MEDS: Cefepime 1 GM in Sodium Chloride 0.9% 100 ML IVPB SCH (11:03)
[2023-08-04] MEDS: Vancomycin HCl 750 MG in Sodium Chloride 0.9% 250 ML 250 ML IVPB SCH (14:21)
[2023-08-04] MEDS ORDERED: Piperacillin/Tazobactam 4.5 GM in Sodium Chloride 0.9% 100 ML IVPB SCH (14:30)
[2023-08-04] MEDS: Piperacillin/Tazobactam 3.375 GM in Sodium Chloride 0.9% 100 ML IVPB SCH (19:49)
[2023-08-05] MEDS: Piperacillin/Tazobactam 3.375 GM in Sodium Chloride 0.9% 100 ML IVPB SCH ×4 (02:58→18:45)
[2023-08-05 08:34] LABS: #Eosinphils 0.3 thou/uL (0.0-0.7); #Monocytes 0.9 thou/uL (0.11-0.59); #Neutrophils 4.5 thou/uL (1.40-6.50); %Basophils 0.4 % (0.0-1.0); %Eosinophils 4.1 % (0.0-10.0); %Monocytes 13.8 % (0.0-10.0); %Neutrophils 66.1 % (42.0-75.0); Hematocrit 32.6 % (42.0-52.0); Hemoglobin 10.5 g/dL (14.0-18.0); Mean Corpuscular HGB CONC 32.2 g/dL (32.0-36.0); Mean Corpuscular Hemoglobin 31.1 pg (27.0-31.0); Mean Corpuscular Volume 96.4 fl (78.0-98.0); Mean Platelet Volume 9.8 fL (7.4-10.4); Platelet Count 144 10x3/uL (130-400); RBC Distribution Width 13.9 % (11.5-14.5); Red Blood Cell (RBC) Count 3.38 mill/uL (4.70-6.10); White Blood Cell (WBC) Count 6.8 10x3/uL (4.8-10.8)
[2023-08-05 08:54] LABS: Anion Gap 15 mmol/L (10-20); BUN (Urea Nitrogen) 26 mg/dL (8.4-25.7); Calc. Creatinine Clearance 51 mL/min (70-130); Calcium 8.3 mg/dL (7.8-10.44); Carbon Dioxide 20 mmol/L (23-31); Chloride 105 mmol/L (98-107); Estimated GFR 45; Glucose 87 mg/dL (80-115); Potassium 4.4 mmol/L (3.5-5.1); Sodium 136 mmol/L (136-145)
[2023-08-05] MEDS: Pantoprazole 40 MG VIAL IVP SCH ×3 (10:29→20:23)
[2023-08-05] MEDS: Carvedilol 3.125 MG TAB PO SCH ×3 (10:29→15:44)
[2023-08-05] MEDS: Ondansetron PF 4 MG/2 ML Vial IVP PRN (15:44)
[2023-08-05] MEDS: Morphine 4 MG/ML VIAL SLOW IVP PRN (15:44)
[2023-08-05] MEDS ORDERED: Sodium Chloride 0.9% 100 ML ONE (18:24)
[2023-08-06] MEDS: Piperacillin/Tazobactam 3.375 GM in Sodium Chloride 0.9% 100 ML IVPB SCH ×2 (02:17→08:36)
[2023-08-06 08:27] VITALS: BP 168/92; TEMP 98.6
[2023-08-06] MEDS: Pantoprazole 40 MG VIAL IVP SCH (08:36)
[2023-08-06] MEDS: Carvedilol 3.125 MG TAB PO SCH (08:36)
== END 2023-08-06 16:20 | disposition home or self-care (01) | DRG 698 ==
LOC: ERS 01:55 → ERHOLD 07:40 → OBSVTOIN 09:59 → 2SW 15:37 → T4-A 08-05 12:04
PROVIDERS: ADMIT Internal Medicine; ATTEND Family Medicine
PROC: 3E03329 Introduction of Other Anti-infective into Peripheral Vein, Percutaneous Approach (ICD-10-PCS; 2023-08-01)
PROC: 30233J1 Transfusion of Nonautologous Serum Albumin into Peripheral Vein, Percutaneous Approach (ICD-10-PCS; principal; 2023-08-02)
DX: T83.598A Infection and inflammatory reaction due to other prosthetic device, implant and graft in urinary system, initial encounter (principal); A41.52 Sepsis due to Pseudomonas; A41.81 Sepsis due to Enterococcus; R65.21 Severe sepsis with septic shock; I13.0 Hypertensive heart and chronic kidney disease with heart failure and stage 1 through stage 4 chronic kidney disease, or unspecified chronic kidney disease; I42.8 Other cardiomyopathies; N10 Acute pyelonephritis; K92.0 Hematemesis; I50.42 Chronic combined systolic (congestive) and diastolic (congestive) heart failure; N17.9 Acute kidney failure, unspecified; T83.518A Infection and inflammatory reaction due to other urinary catheter, initial encounter; F17.210 Nicotine dependence, cigarettes, uncomplicated; I25.10 Atherosclerotic heart disease of native coronary artery without angina pectoris; E78.5 Hyperlipidemia, unspecified; J44.9 Chronic obstructive pulmonary disease, unspecified; E83.42 Hypomagnesemia; N18.30 Chronic kidney disease, stage 3 unspecified; F15.10 Other stimulant abuse, uncomplicated; F31.9 Bipolar disorder, unspecified; N20.0 Calculus of kidney; Z79.899 Other long term (current) drug therapy; Z90.49 Acquired absence of other specified parts of digestive tract; Z98.890 Other specified postprocedural states; Z11.52 Encounter for screening for COVID-19
CPT/HCPCS: 36415; 36416; 71045; 74177; 80048; 80053; 80202; 80306; 80307; 81001; 83605; 83690; 83735; 83880; 84145; 84443; 84484; 85025; 86850; 86900; 86901; 87040; 87077; 87086; 87149; 87186; 93005; 93306; 96365; 96367; 96375; C9113; J0692; J0696; J1885; J2270; J2405; J2543; J3370; J3370-JW; J3475; J3490; J7050; P9047; Q9967

== ENCOUNTER 2023-10-08 04:03 | Inpatient (IN) | payer MEDICARE, OTHER, SELFPAY ==
[2023-10-08 05:12] LABS: Hematocrit 38.8 % (42.0-52.0); Hemoglobin 13.2 g/dL (14.0-18.0); Manual Diff?? YES; Mean Corpuscular Hemoglobin 31.4 pg (27.0-31.0); Mean Corpuscular Volume 92.2 fl (78.0-98.0); Platelet Count 279 10x3/uL (130-400); Red Blood Cell (RBC) Count 4.21 mill/uL (4.70-6.10); White Blood Cell (WBC) Count 25.7 10x3/uL (4.8-10.8)
[2023-10-08 05:13] LABS: Delete Auto Diff?? YES
[2023-10-08] MEDS ORDERED: fentaNYL 50 mcg/mL 1 mL Vial ONE (05:15)
[2023-10-08 05:36] LABS: Bacteria/HPF 4+ HPF (None Seen); Bilirubin Negative (Negative); Blood, Urine 3+ (Negative); CAUTI Indications for Culture Pelvic or flank pain; Clarity Extra Turbid (Clear); Glucose, Urine (Dipstick) Normal (Negative); Ketone, Urine Negative (Negative); Leukocyte 500 Leu/uL (Negative); Nitrite Negative (Negative); Protein, Urine (Dipstick) 300 mg/dL (Neg-Trace); RBC/HPF Greater than 50 HPF (0-3); Specific Gravity, Urine 1.013 (1.002-1.036); Squamous Epithelial 0-3 HPF (0-3); Urobilinogen Normal mg/dL (Less than 2); WBC/HPF Greater than 50 HPF (0-3)
[2023-10-08 05:39] LABS: Urine Culture Reflex Yes Yes
[2023-10-08 06:04] LABS: Band 12 % (5-11); CellaVision Operator ID LAB.CLH1; Hypochromia SLIGHT = 6-15 cells HPF (0-5); Lymphocytes 2 % (21-51); Monocytes 9 % (0-10); Neutrophil 76 % (42-75); Platelet Adequacy Comment Platelets Normal; Polychromasia SLIGHT = 2-3 cells HPF (0-2); Reactive Lymphocytes 1 % (0-10); Total Cell Count 101
[2023-10-08 06:07] LABS: ALT (SGPT) 16 U/L (8-55); AST (SGOT) 15 U/L (5-34); Albumin 3.9 g/dL (3.4-4.8); Alkaline Phosphatase 151 U/L (40-110); Anion Gap 15 mmol/L (10-20); BUN (Urea Nitrogen) 26 mg/dL (8.4-25.7); Bilirubin, Total 0.7 mg/dL (0.2-1.2); Calc. Creatinine Clearance 0 mL/min (70-130); Carbon Dioxide 25 mmol/L (23-31); Chloride 97 mmol/L (98-107); Estimated GFR 26; Globulin 3.8 g/dL (2.4-3.5); Glucose 115 mg/dL (80-115); Lipase 18 U/L (8-78); Potassium 4.9 mmol/L (3.5-5.1); Protein, Total 7.7 g/dL (5.8-8.1); Sodium 132 mmol/L (136-145)
[2023-10-08] MEDS ORDERED: Ondansetron PF 4 MG/2 ML Vial ONE (07:19)
[2023-10-08] MEDS ORDERED: Cefepime 2 GM VIAL ONE (07:38)
[2023-10-08] MEDS ORDERED: Sodium Chloride 0.9% 100 ML ONE (07:39)
[2023-10-08] MEDS ORDERED: Vancomycin (BATCH) 1.5 GM in Premix 1 BAG IVPB SCH (07:45)
[2023-10-08 08:20] LABS: Acetaminophen Less than 10 mcg/mL (10.0-30.0); Alcohol Less than 10.0 mg/dL (Less than 10); Salicylate Less than 8.0 mg/dL (15.0-30.0)
[2023-10-08 08:39] LABS: Lactic Acid 1.1 mmol/L (0.5-2.2)
[2023-10-08 09:08] LABS: THC/Cannabinoid Screen Not Detected (NotDetected)
[2023-10-08 09:09] LABS: Amphetamine Detected (NotDetected); Methamphetamine Detected (NotDetected)
[2023-10-08 09:10] LABS: Barbiturates Screen Not Detected (NotDetected); Benzodiazepine Screen Not Detected (NotDetected); Cocaine Metabolite Screen Not Detected (NotDetected); Methadone Not Detected (NotDetected); Opiate Screen Not Detected (NotDetected); Oxycodone Screen Not Detected (NotDetected); Phencyclidine (PCP) Not Detected (NotDetected); Tricyclic Screen Not Detected (NotDetected)
[2023-10-08] MEDS ORDERED: Piperacillin/Tazobactam 3.375 GM in Sodium Chloride 0.9% 100 ML IVPB SCH (10:15)
[2023-10-08] MEDS: Nicotine 14 MG PATCH TD SCH (11:00)
[2023-10-08] MEDS: Sodium Chloride 0.9% 1,000 ML IV SCH ×2 (11:00→21:05)
[2023-10-08] MEDS ORDERED: Piperacillin/Tazobactam 2.25 GM in Sodium Chloride 0.9% 100 ML IVPB SCH (12:00)
[2023-10-08] MEDS: hydrALAZINE 25 MG TAB PO SCH ×2 (16:07→21:05)
[2023-10-08] MEDS: Carvedilol 6.25 MG TAB PO SCH (16:07)
[2023-10-08] MEDS: Piperacillin/Tazobactam 3.375 GM in Sodium Chloride 0.9% 100 ML IVPB SCH ×2 (16:08→23:22)
[2023-10-08] MEDS ORDERED: Morphine 2 MG/ML VIAL SLOW IVP SCH (19:00)
[2023-10-08 20:00] LABS: Troponin I Less than 0.010 ng/mL (< 0.028)
[2023-10-08] MEDS: Atorvastatin Calcium 40 MG TAB PO SCH (21:03)
[2023-10-08] MEDS ORDERED: Morphine 2 MG/ML VIAL SLOW IVP PRN (23:00)
[2023-10-09] MEDS ORDERED: Ondansetron ODT 4 MG TAB PO PRN (02:44)
[2023-10-09] MEDS ORDERED: Ondansetron PF 4 MG/2 ML Vial IVP PRN (02:44)
[2023-10-09 06:22] LABS: #Eosinphils 0.1 thou/uL (0.0-0.7); #Monocytes 1.6 thou/uL (0.11-0.59); %Basophils 0.2 % (0.0-1.0); %Eosinophils 0.5 % (0.0-10.0); %Lymphocytes 4.9 % (21.0-51.0); %Monocytes 9.5 % (0.0-10.0); %Neutrophils 84.3 % (42.0-75.0); Hematocrit 30.1 % (42.0-52.0); Mean Corpuscular HGB CONC 33.9 g/dL (32.0-36.0); Mean Corpuscular Hemoglobin 31.5 pg (27.0-31.0); Mean Corpuscular Volume 92.9 fl (78.0-98.0); Mean Platelet Volume 9.4 fL (7.4-10.4); Platelet Count 219 10x3/uL (130-400); RBC Distribution Width 14.3 % (11.5-14.5); Red Blood Cell (RBC) Count 3.24 mill/uL (4.70-6.10); White Blood Cell (WBC) Count 16.6 10x3/uL (4.8-10.8)
[2023-10-09 06:33] LABS: Hemoglobin 10.2 g/dL (14.0-18.0)
[2023-10-09 06:48] LABS: Anion Gap 13 mmol/L (10-20); BUN (Urea Nitrogen) 32 mg/dL (8.4-25.7); Calc. Creatinine Clearance 0 mL/min (70-130); Calcium 8.4 mg/dL (7.8-10.44); Carbon Dioxide 21 mmol/L (23-31); Chloride 100 mmol/L (98-107); Estimated GFR 35; Glucose 101 mg/dL (80-115); Potassium 4.1 mmol/L (3.5-5.1); Sodium 130 mmol/L (136-145)
[2023-10-09] MEDS ORDERED: FLU VACC QS2023-24(6MOS UP)/PF 60 MCG/0.5 ML SYRINGE IM ONE (09:00)
[2023-10-09] MEDS: Carvedilol 6.25 MG TAB PO SCH ×2 (09:36→17:27)
[2023-10-09] MEDS: hydrALAZINE 25 MG TAB PO SCH ×3 (09:36→21:08)
[2023-10-09] MEDS: Piperacillin/Tazobactam 3.375 GM in Sodium Chloride 0.9% 100 ML IVPB SCH ×3 (09:36→23:58)
[2023-10-09] MEDS ORDERED: Lidocaine 1% PF 5 ML VIAL ONE ×3 (13:04→13:30)
[2023-10-09] MEDS ORDERED: Sodium Bicarbonate 0.5 MEQ/ML SDV 10 ML ONE (13:04)
[2023-10-09] MEDS ORDERED: Iopamidol 100 ML FS ONE (13:04)
[2023-10-09] MEDS: Nicotine 14 MG PATCH TD SCH (14:08)
[2023-10-09] MEDS: Sodium Chloride 0.9% 1,000 ML IV SCH ×2 (14:08→19:10)
[2023-10-09] MEDS: Atorvastatin Calcium 40 MG TAB PO SCH (21:08)
[2023-10-10] MEDS: Sodium Chloride 0.9% 1,000 ML IV SCH (04:42)
[2023-10-10 04:57] LABS: #Eosinphils 0.1 thou/uL (0.0-0.7); #Monocytes 1.1 thou/uL (0.11-0.59); #Neutrophils 6.4 thou/uL (1.40-6.50); %Basophils 0.2 % (0.0-1.0); %Eosinophils 1.5 % (0.0-10.0); %Monocytes 12.3 % (0.0-10.0); %Neutrophils 72.8 % (42.0-75.0); Hematocrit 30.6 % (42.0-52.0); Mean Corpuscular HGB CONC 32.7 g/dL (32.0-36.0); Mean Corpuscular Hemoglobin 30.6 pg (27.0-31.0); Mean Corpuscular Volume 93.6 fl (78.0-98.0); Mean Platelet Volume 9.2 fL (7.4-10.4); Platelet Count 215 10x3/uL (130-400); RBC Distribution Width 14.2 % (11.5-14.5); Red Blood Cell (RBC) Count 3.27 mill/uL (4.70-6.10); White Blood Cell (WBC) Count 8.8 10x3/uL (4.8-10.8)
[2023-10-10 05:21] LABS: Anion Gap 10 mmol/L (10-20); BUN (Urea Nitrogen) 28 mg/dL (8.4-25.7); Calc. Creatinine Clearance 0 mL/min (70-130); Calcium 8.1 mg/dL (7.8-10.44); Carbon Dioxide 21 mmol/L (23-31); Chloride 105 mmol/L (98-107); Estimated GFR 45; Glucose 85 mg/dL (80-115); Potassium 4.1 mmol/L (3.5-5.1); Sodium 132 mmol/L (136-145)
[2023-10-10 08:20] VITALS: BP 156/86; TEMP 97.9
[2023-10-10] MEDS: Carvedilol 6.25 MG TAB PO SCH (08:48)
[2023-10-10] MEDS: hydrALAZINE 25 MG TAB PO SCH (08:48)
[2023-10-10] MEDS: Piperacillin/Tazobactam 3.375 GM in Sodium Chloride 0.9% 100 ML IVPB SCH (08:48)
[2023-10-10] MEDS: Nicotine 14 MG PATCH TD SCH (13:15)
== END 2023-10-10 14:51 | disposition home or self-care (01) | DRG 698 ==
LOC: ERS 04:03 → T4-B 08:14
PROVIDERS: ADMIT Hospitalist; ATTEND Nurse Practitioner Family
PROC: 3E03329 Introduction of Other Anti-infective into Peripheral Vein, Percutaneous Approach (ICD-10-PCS; 2023-10-08)
PROC: 0T25X0Z Change Drainage Device in Kidney, External Approach (ICD-10-PCS; principal; 2023-10-09)
DX: T83.512A Infection and inflammatory reaction due to nephrostomy catheter, initial encounter (principal); A41.50 Gram-negative sepsis, unspecified; N39.0 Urinary tract infection, site not specified; I50.32 Chronic diastolic (congestive) heart failure; N17.9 Acute kidney failure, unspecified; E87.1 Hypo-osmolality and hyponatremia; I13.0 Hypertensive heart and chronic kidney disease with heart failure and stage 1 through stage 4 chronic kidney disease, or unspecified chronic kidney disease; E78.5 Hyperlipidemia, unspecified; J44.9 Chronic obstructive pulmonary disease, unspecified; N18.9 Chronic kidney disease, unspecified; F15.10 Other stimulant abuse, uncomplicated; F17.210 Nicotine dependence, cigarettes, uncomplicated; F31.9 Bipolar disorder, unspecified; Z98.890 Other specified postprocedural states; Z90.49 Acquired absence of other specified parts of digestive tract; Z79.899 Other long term (current) drug therapy
CPT/HCPCS: 36415; 36416; 50435; 74177; 80048; 80053; 80306; 80307; 81001; 83605; 83690; 83735; 84484; 85025; 87040; 87077; 87086; 87186; 93005; 93010; C1729; J0692; J2272; J2405; J2543; J3010; J3370; J3490; J7050; Q9967